=== PATIENT | male | born 1965 | race African-American/Black ===

== ENCOUNTER 2017-08-25 20:19 | Emergency (ER) | payer OTHER ==
[2017-08-25 20:30] VITALS: BP 171/96; BMI 32.0
--- NOTE | 2017-08-25 21:35 | DR.GENAD ---
HPI - PCP Primary Care Physician: MONTSE - Complaint/Symptoms Chief Complaint Doctors Comments: Patient states that while in [place] for the treatment of pancreatitis. He left prior to termination of treatment by his physician. He started having pain again but might be due to his chronic back issure according to patient. Chief Complaint:: JUST GOT OUT THE HOSPITAL SAT FOR PANCREATITIS ATTACK IN [facility] IN [facility], SAME SYMPTOMS X 2-3 WEEKS LEFT SIDE ABDOMEN, HAD BLOOD WORK DONE IN [facility] OFF[facility] TODAY DR WAS NOT IN BUT NURSES STATED AMALASE AND LIPASE WERE UP. Self Treatment fo Chief Complaint: LORCET 10 MG. SENOKOT - Source History Provided: Patient - Mode of Arrival Mode of Arrival: Ambulatory - Timing Onset of Chief Complaint: 08/11/17 PMH - PMH Past Medical History: Yes Past Medical History: Anxiety Past Surgical History: Yes Past Surgical History Comment: FUSION TO BACK. ABLASION TO BACK - Family History History of Family Medical Conditions: Yes Family Medical History: Diabetes Mellitus, Hypertension Family Medical History Comment: DAD- LIVER FX - Social History Does patient currently use any type of tobacco product: Yes Have you used tobacco products in the last 12 months: Yes Type of Tobacco Use: Cigarettes Does any household member use tobacco: No Alcohol Use: None Do you use any recreational Drugs:: No Lives With: Spouse Lives Where: Home - infectious screening In the last 2 months have you had wt loss of >10#?: NO Have you had fever, night sweats or hemotysis?: No Have you traveled outside the country in the last 6 months?: No Isolation: Standard ROS - Review of Systems Eyes: No Symptoms Reported ENTM: No Symptoms Reported Respiratoy: No Symptoms Reported Cardiovascular: No Symptoms Reported Gastrointestinal/Abdominal: No Symptoms Reported Genitourinary: No Symptoms Reported Neurological: No Symptoms Reported Musculoskeletal: No Symptoms Reported Integumentary: No Symptoms Reported Hematologic/Lymphatic: No Symptoms Reported Endocrine: No Symptoms Reported Psychiatric: No Symptoms Reported All Other Systems: Reviewed and Negative PE - Vital Signs Vitals: Temperature 97.9 F Pulse Rate 94 Respiratory Rate 18 Blood Pressure 171/96 O2 Sat by Pulse Oximetry 100 - General Limitations: No Limitations General Appearance: Alert, In No Apparent Distress - Head Head Exam: Normal Inspection, Atraumatic - Eyes Eye exam: Normal Appearance, PERRL, EOMI - ENT ENT Exam: Normal Exam External Ear Exam: Normal External Inspection TM/Canal Exam: Bilateral Normal Nose Exam: Normal Nose Exam Mouth Exam: Normal Inspection Throat Exam: Normal Inspection - Neck Neck Exam: Normal Inspection - Chest Chest Inspection: Normal Inspection - Respiratory Respiratory Exam: Normal Lung Sounds Bilat Respiratory Exam: Bilateral Clear to Auscultation - Cardiovascular Cardiovascular Exam: Regular Rate, Normal Rhythm - Abdominal Exam Abdominal Exam: Normal Inspection, Normal Bowel Sounds Abdominal Tenderness: LLQ - Extremities Extremities Exam: Normal Inspection, Full ROM - Back Back Exam: Tenderness (mid low back; prior surgical scars) - Neurologic Neurological Exam: Alert, Oriented X3, CN II-XII Intact - Psychiatric Psychiatric Exam: Normal Affect, Normal Mood - Skin Skin Exam: Warm, Dry, Intact ROR - Labs Reviewed Laboratory Results Reviewed?: Yes (amylase 85;lipase 501) Result Diagrams: 08/25/17 21: Laboratory: WBC 6.1 X10^3/uL (3.6-10.0) 08/25/17 21: RBC 4.41 X10^6/uL (4.7-6.0) L 08/25/17 21:33 Hgb 13.1 g/dL (13.5-18.0) L 08/25/17 21:33 Hct 38.3 % (42.0-54.0) L 08/25/17 21:33 MCV 86.9 fL (80.0-100.0) 08/25/17 21: MCH 29.8 pg (27.0-34.0) 08/25/17 21: MCHC 34.3 g/dL (33.0-35.0) 08/25/17 21: RDW 15.2 % (11.6-16.5) 08/25/17 21:33 Plt Count 346 X10^3/uL (150.0-450.0) 08/25/17 21: MPV 8.3 fL (7.4-11.0) 08/25/17 21:33 Neut % (Auto) 51.0 % (42.0-75.0) 08/25/17 21: Lymph % (Auto) 36.2 % (21.0-51.0) 08/25/17 21: [place] % (Auto) 10.3 % (0.0-13.0) 08/25/17 21:33 Eos % (Auto) 1.3 % (0.9-2.9) 08/25/17 21:33 Baso % (Auto) 1.2 % (0.2-1.0) H 08/25/17 21:33 Neut # (Auto) 3.1 x10^3/uL (2.2-4.8) 08/25/17 21:33 Lymph # (Auto) 2.2 X10^3/uL (1.3-2.9) 08/25/17 21:33 [place] # (Auto) 0.6 x10^3/uL (0.3-0.8) 08/25/17 21:33 Eos # (Auto) 0.1 x10^3/uL (0.0-0.2) 08/25/17 21:33 Baso # (Auto) 0.1 X10^3/uL (0.0-0.1) 08/25/17 21:33 Absolute Nucleated RBC 0.0 /100WBC 08/25/17 21:33 C-Reactive Protein 2.10 mg/L (0-3.0) 08/25/17 21:33 Amylase 85 Units/L (25-115) 08/25/17 21:33 Lipase 501 Units/L (73-393) H 08/25/17 21:33 - Diagnosis Discharge Problem: resolving pancreatitis Chronic low back pain Qualifiers: Back pain laterality: midline Sciatica presence: unspecified whether sciatica present Qualified Code(s): M54.5 - Low back pain; G89.29 - Other chronic pain; G89.29 - Other chronic pain - Discharge Plan Condition: Stable - Follow ups/Referrals Follow ups/Referrals: IZABEL ODELL [Primary Care Provider] - 3 days - Instructions
[2017-08-25 21:45] LABS: BASOPHILS # (AUTO) 0.1 X10^3/uL (0.0-0.1); BASOPHILS % (AUTO) 1.2 % (0.2-1.0); EOSINOPHILS # (AUTO) 0.1 x10^3/uL (0.0-0.2); EOSINOPHILS % (AUTO) 1.3 % (0.9-2.9); HEMATOCRIT 38.3 % (42.0-54.0); HEMOGLOBIN 13.1 g/dL (13.5-18.0); LYMPHOCYTES # (AUTO) 2.2 X10^3/uL (1.3-2.9); LYMPHOCYTES % (AUTO) 36.2 % (21.0-51.0); MEAN CORPUSCULAR HEMOGLOBIN 29.8 pg (27.0-34.0); MEAN CORPUSCULAR HGB CONC 34.3 g/dL (33.0-35.0); MEAN CORPUSCULAR VOLUME 86.9 fL (80.0-100.0); MEAN PLATELET VOLUME 8.3 fL (7.4-11.0); MONOCYTES # (AUTO) 0.6 x10^3/uL (0.3-0.8); MONOCYTES % (AUTO) 10.3 % (0.0-13.0); NEUTROPHILS # (AUTO) 3.1 x10^3/uL (2.2-4.8); PLATELET COUNT 346 X10^3/uL (150.0-450.0); RED BLOOD COUNT 4.41 X10^6/uL (4.7-6.0); RED CELL DISTRIBUTION WIDTH 15.2 % (11.6-16.5); WHITE BLOOD COUNT 6.1 X10^3/uL (3.6-10.0)
[2017-08-25 21:50] LABS: C-REACTIVE PROTEIN 2.1 mg/L (0-3.0)
== END 2017-08-25 22:25 | disposition home or self-care (01) ==
LOC: ER 20:47
DX: K86.1 Other chronic pancreatitis (principal); M54.5 Low back pain; G89.29 Other chronic pain; R10.32 Left lower quadrant pain; R74.8 Abnormal levels of other serum enzymes
CPT/HCPCS: 36415; 82150; 83690; 85025; 86140; 99282